=== PATIENT | male | born 1935 | race Caucasian/White ===

== ENCOUNTER 2019-06-11 11:45 | Emergency (ER) | payer MEDICARE, OTHER ==
[2019-06-11 12:11] VITALS: BP 109/70
--- NOTE | 2019-06-11 12:27 | UC ---
Throat Pain/Nasal Neto HPI - HPI Summary HPI Summary: Pt presents with c/ cough, nasal congestion, and sinus pressure and pain X 2 weeks. - History of Current Complaint Chief Complaint: UCRespiratory Stated Complaint: SINUS NAUSEA Time Seen by Provider: 06/11/19 12:12 Hx Obtained From: Patient Onset/Duration: Gradual Onset, Lasting Weeks, Still Present Severity: Moderate Pain Intensity: 6 Cough: Nonproductive Associated Signs & Symptoms: Positive: Sinus Discomfort Related History: Seasonal Allergies - Epiglottits Risk Factors Epiglottis Risk Factors: Negative - Allergies/Home Medications Allergies/Adverse Reactions: Allergies Allergy/AdvReac Type Severity Reaction Status Date / Time Cephalosporins Allergy Anaphylatic Verified 06/11/19 12:06 Shock Penicillins Allergy Unknown Verified 06/11/19 12:06 Reaction Details Sulfa (Sulfonamide Allergy Rash Verified 06/11/19 12:06 Antibiotics) Home Medications: Home Medications Amiodarone TAB* [Cordarone Tab*] 200 mg PO DAILY 06/11/19 [History Confirmed ] Atorvastatin* [Lipitor 40 MG*] 40 mg PO DAILY 06/11/19 [History Confirmed ] Chlorthalidone TAB* [Hygroton TAB*] 25 mg PO DAILY 06/11/19 [History Confirmed 06/11/19] D-Methorphan/PE/Acetaminophen [Theraflu Expressmax Cold-Cough] 1 liq PO ONCE PRN 06/11/19 [History Confirmed 06/11/19] Furosemide TAB* [Lasix TAB*] 20 mg PO BID 06/11/19 [History Confirmed 06/11/19] Levothyroxine TAB* [Synthroid TAB*] 200 mcg PO DAILY 06/11/19 [History Confirmed 06/11/19] Lisinopril TAB* [Prinivil TAB 10 MG*] 20 mg PO DAILY 06/11/19 [History Confirmed 06/11/19] Metoprolol Tartrate TAB* [Lopressor TAB*] 25 mg PO BID 06/11/19 [History Confirmed 06/11/19] Nitroglycerin TAB 0.4 MG* 0.4 mg SL Q5M PRN 06/11/19 [History Confirmed 06/11/19 ] Pantoprazole TAB * [Protonix TAB*] 40 mg PO DAILY 06/11/19 [History Confirmed ] Potassium Chlor TAB* [Potassium Chlor TAB 20 MEQ*] 20 meq PO DAILY 06/11/19 [ History Confirmed 06/11/19] Sucralfate TAB* [Carafate*] 1 gm PO ACHS 06/11/19 [History Confirmed 06/11/19] predniSONE TAB* [Deltasone TAB*] 5 mg PO DAILY 06/11/19 [History Confirmed 06/11] PMH/Surg Hx/FS Hx/Imm Hx Previously Healthy: No Endocrine History: Thyroid Disease, Dyslipidemia Cardiovascular History: Cardiac Disease, Hypertension - Surgical History Surgical History: Yes Surgery Procedure, Year, and Place: quad bipass. pacemaker. appy. colonectomy - Family History Known Family History: Positive: Cardiac Disease - Social History Occupation: Retired Lives: With Family Alcohol Use: None Substance Use Type: None Smoking Status (MU): Former Smoker Have You Smoked in the Last Year: No When Did the Patient Quit Smoking/Using Tobacco: age 47 years Review of Systems All Other Systems Reviewed And Are Negative: Yes Constitutional: Positive: Fatigue Skin: Positive: Negative Eyes: Positive: Negative ENT: Positive: Sinus Congestion, Sinus Pain/Tenderness Respiratory: Positive: Cough Cardiovascular: Positive: Negative Gastrointestinal: Positive: Negative Genitourinary: Positive: Negative Motor: Positive: Negative Neurovascular: Positive: Negative Musculoskeletal: Positive: Negative Neurological: Positive: Negative Psychological: Positive: Negative Is Patient Immunocompromised?: No Physical Exam Triage Information Reviewed: Yes Appearance: Ill-Appearing Vital Signs: Initial Vital Signs Temp 98.2 F 06/11/19 12:07 Pulse 92 06/11/19 12:07 Resp 17 06/11/19 12:07 BP 109/70 06/11/19 12:07 Pulse Ox 99 06/11/19 12:07 Vital Signs Reviewed: Yes Eye Exam: Normal ENT: Positive: Nasal congestion, Sinus tenderness Dental Exam: Normal Neck exam: Normal Respiratory Exam: Normal Cardiovascular Exam: Normal Musculoskeletal Exam: Normal Neurological Exam: Normal Psychological Exam: Normal Skin Exam: Normal Throat Pain/Nasal Course/Dx - Course Course Of Treatment: Pt requested "zpac". he states "that's what they always give me" - Differential Dx/Diagnosis Differential Diagnosis/HQI/PQRI: Sinusitis, URI Provider Diagnosis: Sinusitis Discharge - Sign-Out/Discharge Documenting (check all that apply): Patient Departure All imaging exams completed and their final reports reviewed: No Studies - Discharge Plan Condition: Stable Disposition: HOME Prescriptions: Azithromycin TAB* [Zithromax TAB (Z-MARGARITA) 250 mg #6 tabs] 2 tab PO .TODAY, THEN 1 DAILY #1 margarita Benzonatate CAP* [Tessalon 100 MG CAP*] 100 mg PO Q8H PRN #30 cap PRN Reason: Cough Patient Education Materials: Sinusitis (ED), Acute Cough (ED) Referrals: Satish Styles MD [Primary Care Provider] - If Needed Additional Instructions: Please follow up with your PCP as needed. If your symptoms worsen, please seek care at the closest emergency room. - Billing Disposition and Condition Condition: STABLE Disposition: Home - Attestation Statements Provider Attestation: Pt not seen by me. I was available for consult. PARAM
== END 2019-06-11 12:49 | disposition home or self-care (01) ==
LOC: UCCORT 11:45
DX: J32.9 Chronic sinusitis, unspecified (principal); E07.9 Disorder of thyroid, unspecified; E78.5 Hyperlipidemia, unspecified; I10 Essential (primary) hypertension; Z95.0 Presence of cardiac pacemaker; Z95.1 Presence of aortocoronary bypass graft; Z87.891 Personal history of nicotine dependence; Z88.0 Allergy status to penicillin; Z88.2 Allergy status to sulfonamides
CPT/HCPCS: 99203; G0463